=== PATIENT | male | born 1980 | race Caucasian/White ===

== ENCOUNTER 2022-10-04 10:12 | Outpatient (CLI) | payer BC, SELFPAY | END 2022-10-04 10:13 | disposition home or self-care (01) | PROVIDERS: Visit Provider Family Medicine | DX: Z00.00 Encounter for general adult medical examination without abnormal findings (principal); Z13.6 Encounter for screening for cardiovascular disorders; Z11.59 Encounter for screening for other viral diseases; Z78.9 Other specified health status | CPT/HCPCS: 80053; 80061; 82607; 86803 ==